=== PATIENT | male | born 1985 | race African-American/Black ===

== ENCOUNTER 2022-04-06 12:49 | Emergency (ER) | payer SELFPAY ==
[~2022-04-06] VITALS: Ht 172.7 cm; Wt 67.1 kg
[2022-04-06 15:37] VITALS: BP 141/95
[2022-04-06] MEDS ORDERED: CEPH-509 PO (15:51)
[2022-04-06] MEDS ORDERED: IBUP800T27 PO (15:51)
[2022-04-06] MEDS ORDERED: CLIN300C8 PO (15:51)
[2022-04-06] MEDS ORDERED: LIDOCAINE 1% HCL (LOCAL ANESTH.) INJ 20ML MDV ONE (15:56)
[2022-04-06] MEDS ORDERED: IBUPROFEN 800 MG TAB PO ONE (16:00)
[2022-04-06] MEDS ORDERED: cefTRIAXone SOD 1,000 MG VL IM ONE (16:00)
== END 2022-04-06 16:21 | disposition home or self-care (01) ==
LOC: ER 12:49
DX: J34.0 Abscess, furuncle and carbuncle of nose (principal)
CPT/HCPCS: 96372; 99283; J0696; J2001